=== PATIENT | female | born 1990 | race African-American/Black ===

== ENCOUNTER 2017-05-06 09:14 | Emergency (ER) | payer MEDICAID ==
[2017-05-06] MEDS ORDERED: OXYCODONE-ACETAMINOPHEN 5-325 MG TABLET PO ONE (10:06)
--- NOTE | 2017-05-06 10:13 | ER Document Report ---
ED Breast Problem - General Chief Complaint: Breast Lump Stated Complaint: BREAST PAIN Time Seen by Provider: 05/06/17 10:05 Mode of Arrival: Ambulatory Information source: Patient TRAVEL OUTSIDE OF THE [place] IN LAST 30 DAYS: No - Related Data Allergies/Adverse Reactions: amoxicillin [Amoxicillin] Allergy (Verified 05/06/17 09:27) Penicillins Allergy (Verified 05/06/17 09:27) Past Medical History - Social History Smoking Status: Former Smoker Chew tobacco use (# tins/day): No Frequency of alcohol use: None Drug Abuse: None Family History: Hypertension Patient has suicidal ideation: No Patient has homicidal ideation: No - Past Medical History Cardiac Medical History: Denies: Hx Coronary Artery Disease, Hx Heart Attack, Hx Hypertension Pulmonary Medical History: Reports: Hx Bronchitis Denies: Hx Asthma, Hx COPD, Hx Pneumonia Neurological Medical History: Denies: Hx Cerebrovascular Accident, Hx Seizures Renal/ Medical History: Reports: Hx Ectopic . Denies: Hx Peritoneal Dialysis Musculoskeltal Medical History: Denies Hx Arthritis Past Surgical History: Reports: Hx Gynecologic Surgery - left fallopian tube removed. - Immunizations Hx Diphtheria, Pertussis, Tetanus Vaccination: No Physical Exam - Vital signs Vitals: Temp Pulse Resp BP Pulse Ox 97.9 F 62 20 129/89 H 100 05/06/17 09:27 05/06/17 09:27 05/06/17 09:27 05/06/17 09:27 05/06/17 09:27 Course - Vital Signs Vital signs: Temp Pulse Resp BP Pulse Ox 97.9 F 62 20 129/89 H 100 05/06/17 09:27 05/06/17 09:27 05/06/17 09:27 05/06/17 09:27 05/06/17 09:27
--- NOTE | 2017-05-06 10:32 | ER Document Report ---
ED Medical Screen (RME) - General Chief Complaint: Breast Lump Stated Complaint: BREAST PAIN Time Seen by Provider: 05/06/17 10:05 Mode of Arrival: Ambulatory Notes: Patient presents with chest pain. Patient was in October. Patient had some bloody nipple discharge this morning. Left breast only. Patient has not had an abnormal mammogram in the past. TRAVEL OUTSIDE OF THE [place] IN LAST 30 DAYS: No - Related Data Allergies/Adverse Reactions: amoxicillin [Amoxicillin] Allergy (Verified 05/06/17 09:27) Penicillins Allergy (Verified 05/06/17 09:27) Past Medical History - Social History Chew tobacco use (# tins/day): No Frequency of alcohol use: None Drug Abuse: None - Past Medical History Cardiac Medical History: Denies: Hx Coronary Artery Disease, Hx Heart Attack, Hx Hypertension Pulmonary Medical History: Reports: Hx Bronchitis Denies: Hx Asthma, Hx COPD, Hx Pneumonia Neurological Medical History: Denies: Hx Cerebrovascular Accident, Hx Seizures Renal/ Medical History: Reports: Hx Ectopic . Denies: Hx Peritoneal Dialysis Musculoskeltal Medical History: Denies Hx Arthritis Past Surgical History: Reports: Hx Gynecologic Surgery - left fallopian tube removed. - Immunizations Hx Diphtheria, Pertussis, Tetanus Vaccination: No Physical Exam - Vital signs Vitals: Temp Pulse Resp BP Pulse Ox 97.9 F 62 20 129/89 H 100 05/06/17 09:27 05/06/17 09:27 05/06/17 09:27 05/06/17 09:27 05/06/17 09:27 Course - Re-evaluation Re-evalutation: 05/06/17 10:32 I have greeted and performed a rapid initial assessment of this patient. A comprehensive ED assessment and evaluation of the patient, analysis of test results and completion of the medical decision making process will be conducted by additional ED providers. - Vital Signs Vital signs: Temp Pulse Resp BP Pulse Ox 97.9 F 62 20 129/89 H 100 05/06/17 09:27 05/06/17 09:27 05/06/17 09:27 05/06/17 09:27 05/06/17 09:27
[2017-05-06] MEDS ORDERED: IBUPROFEN 800 MG TABLET PO ONE (10:41)
[2017-05-06] MEDS ORDERED: ACETAMINOPHEN 325 MG TABLET PO ONE (10:41)
--- NOTE | 2017-05-06 11:15 | ER Document Report ---
ED Breast Problem - General Chief Complaint: Breast Lump Stated Complaint: BREAST PAIN Time Seen by Provider: 05/06/17 10:05 Mode of Arrival: Ambulatory TRAVEL OUTSIDE OF THE [place] IN LAST 30 DAYS: No - Related Data Allergies/Adverse Reactions: amoxicillin [Amoxicillin] Allergy (Verified 05/06/17 09:27) Penicillins Allergy (Verified 05/06/17 09:27) Past Medical History - General Information source: Patient - Social History Smoking Status: Former Smoker Chew tobacco use (# tins/day): No Frequency of alcohol use: None Drug Abuse: None Family History: Hypertension Patient has suicidal ideation: No Patient has homicidal ideation: No - Past Medical History Cardiac Medical History: Denies: Hx Coronary Artery Disease, Hx Heart Attack, Hx Hypertension Pulmonary Medical History: Reports: Hx Bronchitis Denies: Hx Asthma, Hx COPD, Hx Pneumonia Neurological Medical History: Denies: Hx Cerebrovascular Accident, Hx Seizures Renal/ Medical History: Reports: Hx Ectopic . Denies: Hx Peritoneal Dialysis Musculoskeltal Medical History: Denies Hx Arthritis Past Surgical History: Reports: Hx Gynecologic Surgery - left fallopian tube removed. - Immunizations Hx Diphtheria, Pertussis, Tetanus Vaccination: No Physical Exam - Vital signs Vitals: Temp Pulse Resp BP Pulse Ox 97.9 F 62 20 129/89 H 100 05/06/17 09:27 05/06/17 09:27 05/06/17 09:27 05/06/17 09:27 05/06/17 09:27 Course - Re-evaluation Re-evalutation: 05/06/17 11:[address] Rock regarding this patient. We are both concerned about intraductal carcinoma. The patient needs to have a diagnostic bilateral mammogram with ultrasound which cannot be done today. She is going to have it scheduled for tomorrow at 1215. The patient does not wear deodorant, lotion, or powders. She is not to bring unsupervised children with her. Explained to patient at length what the most serious diagnosis could be what we are looking for. I am going to cancel blood work at this time. Patient is to follow-up with women's health who she still sees to go over results with her. She will be given pain medication. Patient understands and agrees with this plan. She is stable for discharge. - Vital Signs Vital signs: Temp Pulse Resp BP Pulse Ox 97.9 F 62 20 129/89 H 100 05/06/17 09:27 05/06/17 09:27 05/06/17 09:27 05/06/17 09:27 05/06/17 09:27 Discharge - Discharge Clinical Impression: Breast pain, left, Nipple discharge Condition: Stable Disposition: HOME, SELF-CARE Prescriptions: Oxycodone HCl/Acetaminophen [Percocet 5-325 mg Tablet] 1 - 2 tab PO Q4H PRN #15 tablet PRN Reason: Forms: Follow-Up Radiology Testing, Return to Work Referrals: [facility] [Outside] - 05/07/17 12:15 pm JULITA STRAUSS MD [Primary Care Provider] - Follow up in 3-5 days
[2017-05-06 11:31] VITALS: BP 135/95
== END 2017-05-06 11:30 | disposition home or self-care (01) ==
LOC: ER 09:14
DX: N64.4 Mastodynia (principal); N64.52 Nipple discharge; Z88.0 Allergy status to penicillin; Z87.891 Personal history of nicotine dependence
CPT/HCPCS: 99283; J3490 ×2

== ENCOUNTER → 2017-05-07 | Outpatient (CLI) | payer MEDICAID ==
--- NOTE | 2017-05-07 17:59 | WOMENS [facility]AG[facility] REPORT ---
EXAM DESCRIPTION: BILAT DIAGNOSTIC MAMMO W/CAD; U/S BREAST UNILATERAL, COMPL COMPLETED DATE/TIME: 05/07/2017 12:50 pm; 05/07/2017 1:46 pm REASON FOR STUDY: NIPPLE DISCHARGE; N64.52; NIPPLE DISCHARGE N64.52 N64.52 NIPPLE DISCHARGE COMPARISON: None. TECHNIQUE: Standard craniocaudal and mediolateral oblique views of each breast recorded using digita l acquisition. Additional left breast 90 mediolateral view. Because of a history of bloody nipple discharge on the left, left breast ultrasound was comparison right breast retroareolar imaging was performed. Chest LIMITATIONS: None. FINDINGS: RIGHT BREAST MASSES: No suspicious masses. CALCIFICATIONS: No new or suspicious calcifications. ARCHITECTURAL DISTORTION: None. DEVELOPING DENSITY: None. ASYMMETRY: None noted. OTHER: No other significant findings. LEFT BREAST MASSES: No suspicious masses. CALCIFICATIONS: No new or suspicious calcifications. ARCHITECTURAL DISTORTION: None. DEVELOPING DENSITY: None. ASYMMETRY: None noted. OTHER: No other significant finding. Read with the assistance of CAD: .[facility] - R2 Cenova Version 1.3 .[facility] - R2 Cenova Version 1.3 .[facility] - R2 Cenova Version 2.4 .[facility] - R2 Cenova Version 2.4 .[facility] - R2 Bellmaker Version 9.2 Left breast ultrasound: Patient gives a history of bloody nipple discharge on the left. She presented to the emergency room yesterday for evaluation, and was scheduled for today's diagnostic workup. Ultrasound of the left breast retroareolar region was performed. There are multiple fluid-filled dil ated ducts without filling defects worrisome for papilloma. Comparison imaging of the right retroare olar region was performed, fluid-filled dilated ducts in the right retroareolar region identified wit hout filling defects worrisome for papilloma. IMPRESSION: No mammographic or sonographic evidence for malignancy. However, there is bloody left n ipple discharge without imaging findings on mammography or ultrasound. Recommend either a ductogram on the left, to evaluate for intraductal mass, or bilateral breast MRI with contrast 14 days after th e patient starts her next menstrual cycle. BREAST DENSITY: c. The breasts are heterogeneously dense, which may obscure small masses. BIRAD: 0 Incomplete: Needs additional imaging evaluation and/or prior mammograms for comparison. Ductogram or bilateral breast MRI with contrast 14 days after the patient's next menstrual cycle is r ecommended for follow-up of left breast bloody nipple discharge RECOMMENDATION: RECOMMENDED FOLLOW UP: Left ductogram or bilateral breast MRI with contrast, 14 days after the patient starts her next menstrual cycle SPECIFIC INTERVENTION/IMAGING/CONSULTATION RECOMMENDED:As above COMMUNICATION:These results were discussed with Dr. Bennett, 1750 hours 05/07/2017 COMMENT: The patient has been notified of the results by letter per SA requirements. Additional no tification policies are in place for contacting patient with suspicious or incomplete findings. Quality ID #[id number]: The [employer] recommends an annual screening mammogram for women aged 40 years or over. This facility utilizes a reminder system to ensure that all patients receive reminder letters, and/or direct phone calls for appointments. This includes reminders for routine scr eening mammograms, diagnostic mammograms, or other Breast Imaging Interventions when appropriate. Th is patient will be placed in the appropriate reminder system. The [employer] (ACR) has developed recommendations for screening MRI of the breast s in certain patient populations, to be used in conjunction with mammography. Breast MRI surveillanc e may be appropriate for women with more than 20% lifetime risk of developing breast cancer as deter mined by genetic testing, significant family history of the disease, or history of mantle radiation f or Hodgkins Disease. ACR Practice Guidelines 2008. TECHNICAL DOCUMENTATION: FINDING NUMBER: (1) ASSESSMENT: (1) JOB ID: [id number] [employer]- All Rights Reserved
--- NOTE | 2017-05-07 17:59 | WOMENS [facility]AGING REPORT ---
EXAM DESCRIPTION: BILAT DIAGNOSTIC MAMMO W/CAD; U/S BREAST UNILATERAL, COMPL COMPLETED DATE/TIME: 05/07/2017 12:50 pm; 05/07/2017 1:46 pm REASON FOR STUDY: NIPPLE DISCHARGE; N64.52; NIPPLE DISCHARGE N64.52 N64.52 NIPPLE DISCHARGE COMPARISON: None. TECHNIQUE: Standard craniocaudal and mediolateral oblique views of each breast recorded using digita l acquisition. Additional left breast 90 mediolateral view. Because of a history of bloody nipple discharge on the left, left breast ultrasound was comparison right breast retroareolar imaging was performed. Chest LIMITATIONS: None. FINDINGS: RIGHT BREAST MASSES: No suspicious masses. CALCIFICATIONS: No new or suspicious calcifications. ARCHITECTURAL DISTORTION: None. DEVELOPING DENSITY: None. ASYMMETRY: None noted. OTHER: No other significant findings. LEFT BREAST MASSES: No suspicious masses. CALCIFICATIONS: No new or suspicious calcifications. ARCHITECTURAL DISTORTION: None. DEVELOPING DENSITY: None. ASYMMETRY: None noted. OTHER: No other significant finding. Read with the assistance of CAD: .[facility] - R2 Cenova Version 1.3 .[facility] - R2 Cenova Version 1.3 .[facility] - R2 Cenova Version 2.4 .[facility] - R2 Cenova Version 2.4 .[facility] - R2 Induction Machine Setter Version 9.2 Left breast ultrasound: Patient gives a history of bloody nipple discharge on the left. She presented to the emergency room yesterday for evaluation, and was scheduled for today's diagnostic workup. Ultrasound of the left breast retroareolar region was performed. There are multiple fluid-filled dil ated ducts without filling defects worrisome for papilloma. Comparison imaging of the right retroare olar region was performed, fluid-filled dilated ducts in the right retroareolar region identified wit hout filling defects worrisome for papilloma. IMPRESSION: No mammographic or sonographic evidence for malignancy. However, there is bloody left n ipple discharge without imaging findings on mammography or ultrasound. Recommend either a ductogram on the left, to evaluate for intraductal mass, or bilateral breast MRI with contrast 14 days after th e patient starts her next menstrual cycle. BREAST DENSITY: c. The breasts are heterogeneously dense, which may obscure small masses. BIRAD: 0 Incomplete: Needs additional imaging evaluation and/or prior mammograms for comparison. Ductogram or bilateral breast MRI with contrast 14 days after the patient's next menstrual cycle is r ecommended for follow-up of left breast bloody nipple discharge RECOMMENDATION: RECOMMENDED FOLLOW UP: Left ductogram or bilateral breast MRI with contrast, 14 days after the patient starts her next menstrual cycle SPECIFIC INTERVENTION/IMAGING/CONSULTATION RECOMMENDED:As above COMMUNICATION:These results were discussed with Dr. Bennett, 1750 hours 05/07/2017 COMMENT: The patient has been notified of the results by letter per SA requirements. Additional no tification policies are in place for contacting patient with suspicious or incomplete findings. Quality ID #[id number]: The [employer] recommends an annual screening mammogram for women aged 40 years or over. This facility utilizes a reminder system to ensure that all patients receive reminder letters, and/or direct phone calls for appointments. This includes reminders for routine scr eening mammograms, diagnostic mammograms, or other Breast Imaging Interventions when appropriate. Th is patient will be placed in the appropriate reminder system. The [employer] (ACR) has developed recommendations for screening MRI of the breast s in certain patient populations, to be used in conjunction with mammography. Breast MRI surveillanc e may be appropriate for women with more than 20% lifetime risk of developing breast cancer as deter mined by genetic testing, significant family history of the disease, or history of mantle radiation f or Hodgkins Disease. ACR Practice Guidelines 2008. TECHNICAL DOCUMENTATION: FINDING NUMBER: (1) ASSESSMENT: (1) JOB ID: [id number] [employer]- All Rights Reserved
== END ==
LOC: WI 13:01
PROVIDERS: ATTEND Emergency Medicine
DX: Z12.31 Encounter for screening mammogram for malignant neoplasm of breast (principal); N64.52 Nipple discharge
CPT/HCPCS: 76641; G0204; 77066

== ENCOUNTER → 2017-05-18 | Outpatient (CLI) | payer MEDICAID | LOC: OD 07:51 | PROVIDERS: ATTEND Surgery | DX: N64.52 Nipple discharge (principal) | CPT/HCPCS: 36415; 84146 ==

== ENCOUNTER → 2017-05-19 | Outpatient (CLI) | payer MEDICAID ==
--- NOTE | 2017-05-21 20:19 | RADIOLOGY REPORT (SQ) ---
EXAM DESCRIPTION: MRI BREAST BILAT W AND/OR WO COMPLETED DATE/TIME: 05/19/2017 4:52 pm REASON FOR STUDY: MASTODYNIA/ NIPPLE DISCHARGE N64.4 MASTODYNIA N64.52 NIPPLE DISCHARGE COMPARISON: Mammography and ultrasound. PATHOLOGIC CORRELATION: None. CONTRAST TYPE AND DOSE: 20 mL Prohance. RENAL FUNCTION: GFR > 60. TECHNIQUE: MR imaging performed with a dedicated breast coil. Pre contrast T1 and T2 weighted images . Pre contrast and post contrast enhanced T1 weighted images with fat saturation. Subtraction images, 3D thick and thin MIPS, and kinetic analysis performed on an independent workstat ion. ([employer] workstation) Magnet strength: 1.5 T LIMITATIONS: None. FINDINGS: BREAST DENSITY: c. The breasts are heterogeneously dense, which may obscure small masses. BACKGROUND PARENCHYMAL ENHANCEMENT:Moderate. RIGHT BREAST: No enhancing or suspicious masses. No clumped, regional/segmental ductal enhancement. Generalize high signal in ductal structures on T1 weighted images. Mixed high and low signal on T2 weighted images. No enhancement. CHEST WALL: Normal tissue planes. No abnormal internal mammary nodes. AXILLA: Normal axillary and retro-pectoral nodes. LEFT BREAST:No enhancing or suspicious masses. No clumped, regional/segmental ductal enhancement. Generalize high-signal and ductal structures on T1 weighted images. Mixed high and low signal on T2 weighted images. No enhancement. CHEST WALL: Normal tissue planes. No abnormal internal mammary nodes. AXILLA: Normal axillary and retro-pectoral nodes. OTHER:No identified liver, bone, or lung lesions. No other significant incidental findings. IMPRESSION: Mammary duct ectasia with proteinaceous fluid in the ducts. No focal mass. BIRAD: RIGHT BREAST: 2 Benign findings. LEFT BREAST: 2 Benign findings. RECOMMENDATION: RECOMMENDED FOLLOW-UP: Further intervention based on degree of clinical suspicion. TECHNICAL DOCUMENTATION: JOB ID: [id number] [employer]- All Rights Reserved
== END ==
LOC: RAD 14:10
PROVIDERS: ATTEND Obstetrics & Gynecology
DX: N64.52 Nipple discharge (principal); N60.02 Solitary cyst of left breast; N64.4 Mastodynia
CPT/HCPCS: A9576; C8906; 77059

== ENCOUNTER → 2017-05-26 | Outpatient (CLI) | payer MEDICAID ==
--- NOTE | 2017-05-26 11:53 | RADIOLOGY REPORT (SQ) ---
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 Images stored on PACS. Additional thin section axial and coronal T2, precontrast T1, postcontrast T1 weighted images through the pituitary gland CONTRAST TYPE AND DOSE: 15 mL Multihance. RENAL FUNCTION: None required. The patient is less than 50 years old. LIMITATIONS: None. FINDINGS: PITUITARY FOSSA: Pituitary gland is 0.9 cm AP x 0.6 cm craniocaudad by 1.5 cm transverse, normal size. No nodules. No cysts. Midline pituitary infundibulum. Normal optic chiasm and cavern ous sinuses. CSF SPACES: Normal in size and contour. No hemorrhage. CEREBRUM: Sulci and gyri normal in size and contour. Small foci of increased white matter signal on FLAIR imaging in the bifrontal and right parietal subcortical white matter, likely gliosis along chitra vascular spaces. No evidence of hemorrhage, mass, or extraaxial fluid collection. No abnormal enhance ment post contrast. POSTERIOR FOSSA: No signal alteration. No hemorrhage. No edema, masses, or mass effect. Internal miguel tory canals, cerebellopontine angles, mastoids normal. No enhancing lesions. No abnormal enhancement post contrast. DIFFUSION IMAGING: Negative for acute or subacute infarction. ORBITS: No masses. Globes normal. PARANASAL SINUSES: No fluid levels. Mucosa normal. OTHER: Results discussed with Dr. Carr IMPRESSION: ESSENTIALLY NORMAL MRI OF THE BRAIN AND PITUITARY GLAND WITHOUT AND WITH INTRAVENOUS SANDEE OLINIUM CONTRAST. TECHNICAL DOCUMENTATION: JOB ID: [id number]- All Rights Reserved
== END ==
LOC: RAD 07:24
PROVIDERS: ATTEND Surgery
DX: E22.9 Hyperfunction of pituitary gland, unspecified (principal)
CPT/HCPCS: 70553; A9577

== ENCOUNTER 2018-02-17 11:58 | Emergency (ER) | payer MEDICAID ==
--- NOTE | 2018-02-17 13:07 | ER Document Report ---
ED General - General Chief Complaint: Rash Stated Complaint: POSSIBLE RASH Time Seen by Provider: 02/17/18 13:06 Mode of Arrival: Ambulatory Information source: Patient Notes: Patient is a 27-year-old -Citizen Of [place] female who presents with rash to left flank and right upper arm that started a few days ago. She states she recently moved here, obtain furniture from [employer] and is concerned about bedbugs in the couch. No other family member has the same rash. She has not tried any medications for this. She denies any difficulty swallowing, difficulty breathing, wheezing or vomiting. She denies any other changes in soaps, detergents, cosmetics, lotions, foods, medications. TRAVEL OUTSIDE OF THE [place] IN LAST 30 DAYS: No - Related Data Allergies/Adverse Reactions: amoxicillin [Amoxicillin] Allergy (Verified 05/06/17 09:27) Penicillins Allergy (Verified 05/06/17 09:27) Past Medical History - General Information source: Patient - Social History Smoking Status: Current Every Day Smoker Chew tobacco use (# tins/day): No Frequency of alcohol use: Social Drug Abuse: None Family History: Hypertension Patient has suicidal ideation: No Patient has homicidal ideation: No - Past Medical History Cardiac Medical History: Denies: Hx Coronary Artery Disease, Hx Heart Attack, Hx Hypertension Pulmonary Medical History: Reports: Hx Bronchitis Denies: Hx Asthma, Hx COPD, Hx Pneumonia Neurological Medical History: Denies: Hx Cerebrovascular Accident, Hx Seizures Renal/ Medical History: Reports: Hx Ectopic . Denies: Hx Peritoneal Dialysis Musculoskeltal Medical History: Denies Hx Arthritis Past Surgical History: Reports: Hx Gynecologic Surgery - left fallopian tube removed. - Immunizations Hx Diphtheria, Pertussis, Tetanus Vaccination: No Review of Systems - Review of Systems Constitutional: See HPI EENT: No symptoms reported Cardiovascular: No symptoms reported Respiratory: No symptoms reported Gastrointestinal: No symptoms reported Genitourinary: No symptoms reported Female Genitourinary: No symptoms reported Musculoskeletal: No symptoms reported Skin: See HPI Hematologic/Lymphatic: No symptoms reported Neurological/Psychological: No symptoms reported Physical Exam - Vital signs Vitals: Temp Pulse Resp BP Pulse Ox 98.2 F 79 20 116/75 100 02/17/18 12:14 02/17/18 12:14 02/17/18 12:14 02/17/18 12:14 02/17/18 12:14 - Notes Notes: PHYSICAL EXAM: CONSTITUTIONAL: Alert and oriented, well-appearing and in no acute distress. HENT: Normocephalic, atraumatic. Oropharynx clear without erythema, tonsilar exudate or malocclusion. Trachea midline. Uvula midline. Moist mucous membranes. EYES: Pupils equal round and reactive to light, EOM intact. Sclera anicteric, conjunctiva are normal. No entrapment. NECK: supple without lymphadenopathy. No midline tenderness or paraspinous muscle spasms. No step-offs or deformities. ROM intact. HEART: Regular rate and rhythm without murmurs. LUNGS: CTAB and equal. No wheezes, rales or rhonchi. GI: Normactive bowel sounds. Abdomen is soft, nontender, non-distended. No organomegaly. no CVAT. No rebound or guarding. EXTREMITIES: no bony tenderness, erythema, edema, ecchymosis or deformity. Normal range of motion, no pitting edema. NEURO: Cranial nerves grossly intact. Normal sensory/motor exams. PSYCH: Normal mood, normal affect. SKIN: Warm and dry. Normal turgor. Erythematous urticaria to left flank and right upper arm Course - Re-evaluation Re-evalutation: 02/17/18 13:07 Patient seen and examined. Rash consistent with urticaria, unsure of what is causing the rash. She is driving so will hold off benadryl but will give dose of prednisone here. No respiratory distress, patient is tolerating secretions, speaking in full sentences without difficulty. No other household members have rash. At this time, will discharge with return precautions and follow-up recommendations. Verbal discharge instructions given at the bedside and opportunity for questions given. Medication warnings reviewed. Patient is in agreement with this plan and has verbalized understanding of return precautions and the need for primary care follow-up in the next 24-72 hours. - Vital Signs Vital signs: Temp Pulse Resp BP Pulse Ox 98.0 F 88 18 132/87 H 99 02/17/18 14:01 02/17/18 14:01 02/17/18 14:01 02/17/18 14:01 02/17/18 14:01 Discharge - Discharge Clinical Impression: Urticaria, Allergic dermatitis Condition: Stable Disposition: HOME, SELF-CARE Additional Instructions: ACUTE ALLERGIC REACTION: Your symptoms are due to an allergic reaction. Allergy can cause hives, swelling of the hands, feet, and face, hoarseness, and difficulty swallowing or breathing. It may be due to exposure to medication, animal dander, foods, infection, or insect bites. Medication is a common cause, even when prior use of this same medication caused no problems. Acute treatment may include adrenalin and antihistamines. Usually, the specific allergic agent can't be identified unless repeated episodes occur. Home treatment includes the following: (1) Stop any suspicious medications. This will be discussed with you. (2) Oral antihistamines for the next four to five days. Example, diphenhydramine (Benadryl) every four hours. (3) You may also use cimetidine (Tagamet), ranitidine (Zantac), or famotidine ( Pepcid) every four hours if diphenhydramine is not controlling itching and hives. (4) Avoid aspirin until the hives completely disappear. (5) Avoid hot baths or showers until the hives are completely gone. Call the doctor if faintness, difficulty swallowing, tightness in the chest , or wheezing occurs. STEROID MEDICATION: You have been given a medicine of the cortisone/steroid class. This medication is used to control inflammation or allergy. It is usually only given for a short period of time, until the acute process subsides. There are usually no side effects from short-term use of cortisone-like medications. Some persons feel an increased sense of well-being and are not sleepy at bedtime. Long-term use of cortisone medications is best avoided, unless required for a severe condition. If your condition does not remit, or relapses after the course of corticosteroid medication, you should consult your physician. ANTIHISTAMINES: An antihistamine has been given and/or prescribed to control your symptoms. Antihistamines are used for many reasons, including itching, watering eyes, runny nose, allergic swelling, hives, and insect stings. Antihistamines may cause drowsiness, especially with the first dose. Do not operate machinery or drive while under the effects of the medication. Other common side effects include dry mouth and eyes. In older persons, antihistamines can occasionally cause urinary retention, constipation, and trouble focusing the eyes. Do not combine the medication with alcohol, or with any other medication without talking to your doctor. USE OF DIPHENHYDRAMINE: The use of diphenhydramine (Benadryl) has been recommended to control allergic symptoms. The 25 mg strength is available over- the-counter, as well as the elixir. This antihistamine is used for many symptoms. It's useful for itching, watering eyes and nose, allergic swelling, hives, and insect stings. The medication can be repeated four times daily. Age Elixir (12.5 mg/tsp) 25 mg pill 2-3 yr 1/2 tsp 4-8 yr 1 tsp 9-14 yr 2 tsp one tab adult 1-2 tabs Antihistamines may cause drowsiness, especially with the first dose. Do not operate machinery or drive while under the effects of the medication. Do not combine the medication with alcohol, or with any other medication without talking to your doctor. FOLLOW-UP CARE: If you have been referred to a physician for follow-up care, call the physician s office for an appointment as you were instructed or within the next two days. If you experience worsening or a significant change in your symptoms, notify the physician immediately or return to the Emergency Department at any time for re-evaluation. Prescriptions: Prednisone [Deltasone 20 mg Tablet] 3 tab PO DAILY 5 Days tablet Referrals: AUBRIE STAFFORD MD [Primary Care Provider] - Follow up in 3-5 days
[2018-02-17] MEDS ORDERED: PREDNISONE 20 MG TABLET PO ONE (13:55)
[2018-02-17 14:08] VITALS: BP 132/87
== END 2018-02-17 14:08 | disposition home or self-care (01) ==
LOC: ER 11:58
DX: L23.9 Allergic contact dermatitis, unspecified cause (principal); F17.200 Nicotine dependence, unspecified, uncomplicated; Z88.0 Allergy status to penicillin
CPT/HCPCS: 99282; J7512

== ENCOUNTER 2018-05-08 06:03 | Emergency (ER) | payer SELFPAY ==
[2018-05-08 06:56] LABS: ABSOLUTE EOSINOPHILS # (AUTO) 0.1 10^3/uL (0.0-0.6); ABSOLUTE LYMPHOCYTES (AUTO) 2.7 10^3/uL (0.5-4.7); ABSOLUTE MONOCYTES (AUTO) 0.5 10^3/uL (0.1-1.4); ABSOLUTE NEUT (AUTO) 4.1 10^3/uL (1.7-8.2); BASOPHILS % (AUTO) 0.5 % (0-2); EOSINOPHILS % (AUTO) 1.3 % (0-6); HEMATOCRIT 41.2 % (36.0-47.0); HEMOGLOBIN 13.6 g/dL (12.0-15.5); LYMPHOCYTES % (AUTO) 36.8 % (13-45); MEAN CORPUSCULAR HEMOGLOBIN 29.5 pg (27.0-33.4); MEAN CORPUSCULAR HGB CONC 33.1 g/dL (32.0-36.0); MEAN CORPUSCULAR VOLUME 89 fl (80-97); MONOCYTES % (AUTO) 6.3 % (3-13); PLATELET COUNT 261 10^3/uL (150-450); RED BLOOD COUNT 4.62 10^6/uL (3.72-5.28); RED CELL DISTRIBUTION WIDTH 12.7 % (11.5-14.0); SEGMENTED NEUTROPHILS % (AUTO) 55.1 % (42-78); TOTAL CELLS COUNTED % (AUTO) 100 %; WHITE BLOOD COUNT 7.5 10^3/uL (4.0-10.5)
[2018-05-08 07:20] LABS: ALANINE AMINOTRANSFERASE 41 U/L (9-52); ALBUMIN 4.2 g/dL (3.5-5.0); ALKALINE PHOSPHATASE 77 U/L (38-126); ANION GAP 11 (5-19); ASPARTATE AMINO TRANSFERASE 32 U/L (14-36); BILIRUBIN,DIRECT 0.3 mg/dL (0.0-0.4); BILIRUBIN,TOTAL 0.3 mg/dL (0.2-1.3); BLOOD UREA NITROGEN 7 mg/dL (7-20); CALCIUM 9.7 mg/dL (8.4-10.2); CARBON DIOXIDE 23 mmol/L (22-30); CHLORIDE 110 mmol/L (98-107); GLUCOSE 101 mg/dL (75-110); LIPASE 56.6 U/L (23-300); POTASSIUM 4.5 mmol/L (3.6-5.0); SODIUM 144.1 mmol/L (137-145); TOTAL PROTEIN 6.9 g/dL (6.3-8.2)
[2018-05-08 07:47] LABS: APPEARANCE,URINE SLIGHTLY-CLOUDY; BILIRUBIN,URINE NEGATIVE (NEGATIVE); COLOR,URINE AMBER; GLUCOSE, URINE NEGATIVE (NEGATIVE); KETONES,URINE NEGATIVE (NEGATIVE); LEUKOCYTE ESTERASE,URINE TRACE (NEGATIVE); NITRITE,URINE NEGATIVE (NEGATIVE); PROTEIN,URINE 30 mg/dL (NEGATIVE); URINE SPECIFIC GRAVITY 1.031
--- NOTE | 2018-05-08 08:32 | ER Document Report ---
ED GI/ - General Mode of Arrival: Ambulatory Information source: Patient TRAVEL OUTSIDE OF THE [place] IN LAST 30 DAYS: No <EARLE PA - Last Filed: 05/08/18 10:54> <ALL GOLDSTEIN - Last Filed: 05/08/18 13:32> - General Chief Complaint: Abdominal Pain Stated Complaint: ABDOMINAL PAIN Time Seen by Provider: 05/08/18 08:19 Notes: Patient is a 27 year old female presenting to the emergency department complaining of lower abdominal pain with associated symptoms of nausea, vomiting x2 and diaphoresis onset around 0430 this morning. Patient states the pain woke her up this morning further stating it feels worse than childbirth. Patient states she felt similar symptoms 3 months ago reporting she did not see a doctor and decided to "tough it out". Patient denies any fevers or vaginal discharge. Patient states she is currently prescribed Gabapentin and Neurontin but is not currently taking either prescription. Patient states her LMP was in 2014 before she had a Nexplanon implanted which was removed in 2015. (EARLE PA) - Related Data Allergies/Adverse Reactions: amoxicillin [Amoxicillin] Allergy (Verified 05/08/18 06:15) Penicillins Allergy (Verified 05/08/18 06:15) Past Medical History - General Information source: Patient - Social History Smoking Status: Current Every Day Smoker Cigarette use (# per day): Yes - 1/2 a pack a day Frequency of alcohol use: Social Drug Abuse: None Occupation: residential recycle driver Family History: Hypertension Patient has suicidal ideation: No Patient has homicidal ideation: No Pulmonary Medical History: Reports: Hx Bronchitis Renal/ Medical History: Reports: Hx Ectopic - Subsequent left Salpingectomy in 2011 Malignancy Medical History: Reports: Hx Breast Cancer - Introductory carcinoma Past Surgical History: Reports: Hx Gynecologic Surgery - left fallopian tube removed. - Immunizations Hx Diphtheria, Pertussis, Tetanus Vaccination: No <EARLE PA - Last Filed: 05/08/18 10:54> Review of Systems - Review of Systems Constitutional: See HPI, Diaphoresis EENT: No symptoms reported Cardiovascular: No symptoms reported Respiratory: No symptoms reported Gastrointestinal: See HPI, Abdominal pain Genitourinary: No symptoms reported Female Genitourinary: No symptoms reported. denies: Vaginal discharge Musculoskeletal: No symptoms reported Skin: No symptoms reported Hematologic/Lymphatic: No symptoms reported Neurological/Psychological: No symptoms reported -: Yes All other systems reviewed and negative <EARLE PA - Last Filed: 05/08/18 10:54> Physical Exam - General General appearance: Appears well, Alert In distress: None - HEENT Head: Normocephalic, Atraumatic Eyes: Normal Conjunctiva: Normal Extraocular movements intact: Yes Pupils: PERRL Neck: Normal - Respiratory Respiratory status: No respiratory distress - Cardiovascular Rhythm: Regular Heart sounds: Normal auscultation Murmur: No Friction rub: No Gallop: None auscultated - Abdominal Inspection: Normal Distension: No distension Tenderness: Nontender - tender to the RLQ, LLQ, and suprapbuic area, Tender Organomegaly: No organomegaly - Back Back: Normal - Extremities General upper extremity: Normal ROM General lower extremity: Normal ROM - Neurological Neuro grossly intact: Yes Cognition: Normal Orientation: AAOx4 Aj Coma Scale Eye Opening: Spontaneous [place] Coma Scale Verbal: Oriented [place] Coma Scale Motor: Obeys Commands Aj Coma Scale Total: 15 Speech: Normal - Psychological Associated symptoms: Normal affect, Normal mood - Skin Skin Temperature: Warm Skin Moisture: Dry Skin Color: Normal <EARLE PA - Last Filed: 05/08/18 10:54> Course - Laboratory Result Diagrams: 05/08/18 06:35 05/08/18 06:35 <EARLE PA - Last Filed: 05/08/18 10:54> - Laboratory Result Diagrams: 05/08/18 06:35 05/08/18 06:35 - Diagnostic Test Radiology reviewed: Image reviewed, Reports reviewed - CT scan of the abdomen and pelvis with IV and oral contrast is unremarkable. <ALL GOLDSTEIN - Last Filed: 05/08/18 13:32> - Re-evaluation Re-evalutation: 05/08/18 13:26 CT scan is unremarkable, CBC is unremarkable, GC chlamydia PCR is negative. I had earlier advised patient that if all the workup was negative, we would treat her for pelvic infection due to the amount of discomfort she was having on physical exam. (ALL GOLDSTEIN) - Laboratory Laboratory results interpreted by me: 05/08/18 05/08/18 06:35 07:23 Chloride 110 H Urine Protein 30 H Urine Urobilinogen 4.0 H Ur Leukocyte Esterase TRACE H Discharge <EARLE PA - Last Filed: 05/08/18 10:54> <TRISTON,ALL - Last Filed: 05/08/18 13:32> - Discharge Clinical Impression: Pelvic pain Condition: Stable Disposition: HOME, SELF-CARE Additional Instructions: Pelvic Pain There are many causes of pain in the pelvic area. The cause could be the tubes, ovaries, uterus, intestines, appendix, pelvic muscles and connective tissue, or the urinary tract. The cause of your pelvic pain is not clear. However, it seems safe to treat you outside the hospital. If the pain sounds like a temporary problem, we sometimes wait to see if it goes away. Other patients may need additional tests, such as pelvic ultrasound or cultures. Conditions may change. Call us or come back for reexamination if any problems occur, such as: (1) Pain that becomes more severe, steady, or becomes concentrated in one specific area. Also, pain that is more severe with movement or coughing. (2) Vomiting that persists or becomes more frequent. (3) Blood in the vomitus, urine, or bowel movements. Blood in the stool may have a tarry or black appearance. (4) Shaking chills or fever greater than 100 degrees. (5) The abdomen becomes more distended or swollen. (6) Bowel movements cease. (7) Heavy vaginal bleeding. The CT scan did not show any inflammatory process or any diverticular disease. Your lab work did not suggest an infectious process. The pelvic tenderness on exam will be treated with a course of antibiotics and pain medication if needed. Be sure to drink plenty of fluids today and rest. Follow-up with [facility] or your primary care provider if not improving. RETURN TO THE EMERGENCY ROOM IF ANY NEW OR WORSENING SYMPTOMS. Prescriptions: Doxycycline Hyclate 100 mg PO BID #14 tablet Hydrocodone/Acetaminophen [Hydrocodon-Acetaminophen 5-325] 1 each PO Q4 PRN #15 tablet PRN Reason: For Pain Referrals: AUBRIE STAFFORD MD [Primary Care Provider] - Follow up as needed Scribe Attestation: 05/08/18 09:45 I personally performed the services described in the documentation, reviewed and edited the documentation which was dictated to the scribe in my presence, and it accurately records my words and actions. (ALL GOLDSTEIN) Scribe Documentation - Scribe Written by Hiwote:: Darshana Dozier, 05/08/2018 08:52 acting as scribe for :: Triston <EARLE PA - Last Filed: 05/08/18 10:54>
[2018-05-08] MEDS ORDERED: NORMAL SALINE 1000 ML 1,000 ML IV ONE (08:36)
[2018-05-08] MEDS ORDERED: KETOROLAC TROMETHAMINE INJ/PF 30 MG/1 ML SDV IV ONE (08:38)
[2018-05-08] MEDS ORDERED: METOCLOPRAMIDE HCL INJ/PF 10 MG/2 ML SDV IV ONE (10:30)
[2018-05-08 11:42] LABS: CHLAM PCR NOT DETECTED (NOT DETECT); GON PCR NOT DETECTED (NOT DETECT)
--- NOTE | 2018-05-08 13:21 | RADIOLOGY REPORT (SQ) ---
EXAM DESCRIPTION: CT ABD/PELVIS WITH IV ORAL COMPLETED DATE/TIME: 05/08/2018 12:42 pm REASON FOR STUDY: Pelvic pain, history of diverticulitis COMPARISON: None. TECHNIQUE: CT scan of the abdomen and pelvis performed using helical scanning technique with dynamic intravenous contrast injection. Patient drank oral contrast. Images reviewed with lung, soft tissue , and bone windows. Reconstructed coronal and sagittal MPR images reviewed. Delayed images for evalua tion of the urinary system also acquired. All images stored on PACS. All CT scanners at this facility use dose modulation, iterative reconstruction, and/or weight based d osing when appropriate to reduce radiation dose to as low as reasonably achievable (ALARA). [facility]: Dose Right [facility]: CareDose [facility]: Dose Right [facility]: Teradose 4D [facility]: Alaris CONTRAST TYPE AND DOSE: contrast/concentration: Isovue 370.00 mg/ml; Total Contrast Delivered: 98.0 ml; Total Saline Delivered: 62.0 ml RENAL FUNCTION: Creatinine 0.6 RADIATION DOSE: CT Rad equipment meets quality standard of care and radiation dose reduction techniq ues were employed. CTDIvol: 6.9 - 9.9 mGy. DLP: 832 mGy-cm.. LIMITATIONS: None. FINDINGS: LOWER CHEST: No significant findings. No nodules or infiltrates. LIVER: Normal size. No masses. No dilated ducts. SPLEEN: Normal size. No focal lesions. PANCREAS: No masses. No significant calcifications. No adjacent inflammation or peripancreatic fluid collections. Pancreatic duct not dilated. GALLBLADDER: No identified stones by CT criteria. No inflammatory changes to suggest cholecystitis. ADRENAL GLANDS: No significant masses or asymmetry. RIGHT KIDNEY AND URETER: No solid masses. No significant calcifications. No hydronephrosis or hyd roureter. LEFT KIDNEY AND URETER: No solid masses. No significant calcifications. No hydronephrosis or hydr oureter. AORTA AND VESSELS: No aneurysm. No dissection. Renal arteries, SMA, celiac without stenosis. RETROPERITONEUM: No retroperitoneal adenopathy, hemorrhage or masses. BOWEL AND PERITONEAL CAVITY: Patient drank oral contrast. No CT evidence of bowel obstruction. No m asses or inflammatory changes. No free fluid or peritoneal masses. APPENDIX: Normal. PELVIS: No mass. No free fluid. Normal bladder. ABDOMINAL WALL: No masses. No hernias. BONES: No significant or acute findings. OTHER: No other significant finding. IMPRESSION: NO SIGNIFICANT OR ACUTE FINDING IN THE ABDOMEN OR PELVIS ON CT SCAN WITH IV CONTRAST. TECHNICAL DOCUMENTATION: JOB ID: [id number] Quality ID # [id number]: Final reports with documentation of one or more dose reduction techniques (e.g., Au tomated exposure control, adjustment of the mA and/or kV according to patient size, use of iterative reconstruction technique) 2010 [employer]- All Rights Reserved Reading location - IP/workstation name: [email or web address]
[2018-05-08] MEDS ORDERED: DOXYCYCLINE HYCLATE 100 MG TABLET PO ONE (13:32)
[2018-05-08 13:59] VITALS: BP 113/76
== END 2018-05-08 13:59 | disposition home or self-care (01) ==
LOC: ER 06:03
DX: R10.2 Pelvic and perineal pain (principal); R10.30 Lower abdominal pain, unspecified; F17.210 Nicotine dependence, cigarettes, uncomplicated; R61 Generalized hyperhidrosis; Z88.0 Allergy status to penicillin
CPT/HCPCS: 99284; 96361; 96374; 96375; 36415; 83690; 85025; 81025; 80053; 81001; 87491; 87591; 74177; J1885; J2765; J7030